=== PATIENT | male | born 1980 | race African-American/Black ===

== ENCOUNTER 2020-10-11 05:32 | Emergency (ER) | payer SELFPAY ==
[~2020-10-11] VITALS: Ht 182.9 cm; Wt 127.0 kg
--- NOTE | 2020-10-11 05:47 | PHYS DOC ---
General Adult EDM: Chief Complaint: GENERALIZED BODY ACHES HPI: HPI: 39-year-old male presents with 2-day history of fatigue, body aches, mild headache. He denies cough or shortness of breath. He has a friend who was sick for couple days. This was about 3 days ago. The patient is not vaccinated for COVID-19. He denies nausea, vomiting, chest pain. (MESERET NGUYỄN DO) HPI: Accepted patient care at shift change pending labs. EKG and chest x-ray unremarkable. (AMISH SKAGGS MD) Review of Systems: Review of Systems: Constitutional: Denies fever or chills. Fatigue, body aches. Eyes: Denies change in visual acuity HENT: Denies nasal congestion or sore throat Respiratory: Denies cough or shortness of breath Cardiovascular: Denies chest pain or edema GI: Denies abdominal pain, nausea, vomiting, bloody stools or diarrhea : Denies dysuria Musculoskeletal: Denies back pain or joint pain Integument: Denies rash Neurologic: Headache. Denies focal weakness or sensory changes Endocrine: Denies polyuria or polydipsia Lymphatic: Denies swollen glands Psychiatric: Denies depression or anxiety (MESERET NGUYỄN DO) Physical Exam: PE: Constitutional: Well developed, well nourished, obese, no acute distress, non- toxic appearance. [] HENT: Normocephalic, atraumatic, bilateral external ears normal, oropharynx moist, no oral exudates, nose normal. [] Eyes: PERRLA, EOMI, conjunctiva normal, no discharge. [] Neck: Normal range of motion, no tenderness, supple, no stridor. [] Cardiovascular: Heart rate 100, regular rhythm, no murmur [] Lungs & Thorax: Bilateral breath sounds clear to auscultation [] Abdomen: Bowel sounds normal, soft, no tenderness, no masses, no pulsatile masses. [] Skin: Warm, dry, no erythema, no rash. [] Back: No tenderness, no CVA tenderness. [] Extremities: No tenderness, no cyanosis, no clubbing, ROM intact, no edema. [] Neurologic: Alert and oriented X 3, normal motor function, normal sensory function, no focal deficits noted. [] Psychologic: Affect normal, judgement normal, mood normal. [] (MESERET NGUYỄN DO) EKG: EKG: [] (MESERET NGUYỄN DO) EKG: Sinus rhythm, heart rate 86/min, normal axis, no ST elevation or depression (AMISH SKAGGS MD) Radiology/Procedures: Radiology/Procedures: [] (MESERET NGUYỄN DO) Radiology/Procedures: [address] [address] IMAGING REPORT Signed PATIENT: MIRTHA OSHEA EACCOUNT: [id number] : 1980 LOCATION: ER AGE: 39 SEX: M EXAM STATUS: REG ER ORD. PHYSICIAN: MESERET NGUYỄN DO REASON: SoB PROCEDURE: CHEST AP ONLY EXAM: CHEST ONE VIEW. HISTORY: Shortness of breath. COMPARISON: None. FINDINGS: A frontal view of the chest is obtained. There are no confluent infiltrates. A linear opacity in the left base is consistent with atelectasis or scarring. There is no pneumothorax or pleural effusion. The heart is not enlarged. IMPRESSION: 1. No confluent infiltrates. Electronically signed by: Radha Uribe MD (10/11/2020 6:54 AM) [facility] DICTATED AND SIGNED BY: DELIA URIBE MD DATE: 10/11/20652 CC: MESERET NGUYỄN DO; PCP,NO ~MTH0 0 (AMISH SKAGGS MD) Heart Score: C/O Chest Pain: N/A Risk Factors: Risk Factors: DM, Current or recent (<one month) smoker, HTN, HLP, family history of CAD, obesity. Risk Scores: Score 0 - 3: 2.5% MACE over next 6 weeks - Discharge Home Score 4 - 6: 20.3% MACE over next 6 weeks - Admit for Clinical Observation Score 7 - 10: 72.7% MACE over next 6 weeks - Early Invasive Strategies (MESERET NGUYỄN DO) C/O Chest Pain: No HEART Score for Chest Pain: HEART Score for Chest Pain Response (Comments) Value History Slighlty/Non-Suspicious 0 ECG Normal 0 Age < 45 0 Risk Factors No Risk Factors 0 Troponin < Normal Limit 0 Total 0 (AMISH SKAGGS MD) Course & Med Decision Making: Course & Med Decision Making Pertinent Labs and Imaging studies reviewed. (See chart for details) The patient's workup is pending. I am signing him out to Dr. Skaggs at 0600. [] (MESERET NGUYỄN DO) Brook Disclaimer: Brook Disclaimer: This electronic medical record was generated, in whole or in part, using a voice recognition dictation system. (MESERET NGUYỄN DO) Departure Departure: Impression: Primary Impression: Person under investigation for COVID-19 Disposition: 01 HOME / SELF CARE / HOMELESS Condition: STABLE Referrals: PCP,NO (PCP) Additional Instructions: You have been tested for or diagnosed with COVID-19. It is an infection caused by a new type of coronavirus. COVID-19 will cause cold-like or mild flu symptoms in most. It can cause more severe symptoms like problems breathing in some. There is no treatment for COVID-19. The body will clear the infection over time. Self-care will help to ease discomfort. Steps to Take: Self-Care Rest as needed. Healthy habits may help you feel better. Steps include: Choose healthy foods including fruits and vegetables. Drink water throughout the day. Get plenty of sleep each night. If you smoke, try to quit. It may ease breathing. Avoid alcohol. Keep Others Healthy The virus can spread to others. Droplets are released every time you sneeze or cough. The droplets can get into the mouth, nose, or eyes of people near you and lead to infection. To lower the chances of spreading COVID-19 to others: Stay at home until your doctor has said it is safe to leave. If you tested positive this will mean staying isolated until both of the following are true: At least 7 days have passed since the start of illness. You are free of fever for at least 72 hours without the use of medicine. During this time: - Avoid public areas, events, or transportation. Do not return to work or school until your doctor has said it is safe to do so. - Call ahead if you need to go to a medical center. Let them know you may have COVID-19. It will help them guide you where to go. They may also ask you to wear a facemask when you come to the office. - If you call for emergency medical services, let them know you may have COVID- 19. While at home: - Try to avoid close contact with others. Stay about 6 feet away. - If possible, spend most of your time in a separate room from others. - Use a face mask if you will be in close contact with others such as sharing a room or vehicle. - Have someone wipe down common surfaces in the home. Use household sr risk management consultant every day on areas like doorknobs, counters, or sinks. - Cough or sneeze into a tissue. Throw the tissue away right after use. If a tissue is not available, cough or sneeze into your elbow. - Wash your hands often. Wash them after sneezing or coughing. Use soap and water and wash for at least 20 seconds. Alcohol based hand bin cleaner can be used if soap and water is not available. - Do not prepare food for others. Avoid sharing personal items like forks, spoons, or toothbrushes. - Avoid close contact with pets while you are sick. There is no evidence of the virus passing to pets. This is a safety step until more is known about this virus. Isolation can be frustrating. Social interaction can help. Keep in touch with friends and family through phone and tech options. You can still interact with others in your home, just keep a safe distance of about 6 feet. Follow-up: Your doctors office will check in with you to see if there are any changes in your health. You may be asked to keep track of symptoms to share with them. They will also l et you know when you are clear to be in public again. Problems to Look Out For: Contact your doctor if your recovery is not going as you expect. Get emergency care if you have problems such as: - Trouble breathing - Nonstop chest pain or pressure - Changes in awareness, confusion, or problems waking - Lips or face have bluish color - Worsening of symptoms If you think you have an emergency, call for emergency medical services right away. As taken from [facility] MESERET NGUYỄN DO Oct 11, 2020 05:47 AMISH SKAGGS MD Oct 11, 2020 07:34
--- NOTE | 2020-10-11 06:31 | EKG ---
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
--- NOTE | 2020-10-11 06:56 | RAD ---
EXAM: CHEST ONE VIEW. HISTORY: Shortness of breath. COMPARISON: None. FINDINGS: A frontal view of the chest is obtained. There are no confluent infiltrates. A linear opacity in the left base is consistent with atelectasis or scarring. There is no pneumothorax or pleural effusion. The heart is not enlarged. IMPRESSION: 1. No confluent infiltrates. Electronically signed by: Radha Uribe MD (10/11/2020 6:54 AM) [facility]
[2020-10-11 07:04] LABS: BASO % 1 % (0-3); EOS % 1 % (0-3); HEMATOCRIT 41.8 % (39.0-53.0); HEMOGLOBIN 14.2 g/dL (13.0-17.5); LYMPH % 30 % (24-48); MEAN CORPUSCULAR HEMOGLOBIN 32 pg (25-35); MEAN CORPUSCULAR HGB CONC 34 g/dL (31-37); MEAN CORPUSCULAR VOLUME 94 fL (79-100); MONO # 0.5 x10^3/uL (0.0-1.1); MONO % 14 % (0-9); NEUT # 1.8 x10^3uL (1.8-7.7); NEUT % 55 % (31-73); PLATELET COUNT 66 x10^3/uL (140-400); RED BLOOD COUNT 4.46 x10^6/uL (4.30-5.70); RED CELL DISTRIBUTION WIDTH 13.9 % (11.5-14.5); WHITE BLOOD COUNT 3.3 x10^3/uL (4.0-11.0)
[2020-10-11 07:10] LABS: CALCIUM 8.2 mg/dL (8.5-10.1); CREATININE 1.3 mg/dL (0.7-1.3); GFR 74.4
[2020-10-11 07:16] LABS: ALBUMIN 3.8 g/dL (3.4-5.0); ALBUMIN/GLOBULIN RATIO 1.3 (1.0-1.7); TOTAL BILIRUBIN 0.5 mg/dL (0.2-1.0); TOTAL PROTEIN 6.7 g/dL (6.4-8.2)
[2020-10-11 08:00] VITALS: BP 156/78
--- NOTE | 2020-10-13 12:25 | NUR ---
Call to notify patient of POSITIVE COVID test results. Voicemail does not identify by name, message left requesting return call to [phone] for ED test results, non-specific.
== END 2020-10-11 08:00 | disposition home or self-care (01) ==
LOC: ER 05:32
DX: U07.1 COVID-19 (principal)
CPT/HCPCS: 71045; 80053; 84484; 85025; 93005; 99285; C9803; U0003

== ENCOUNTER 2020-10-15 22:03 | Emergency (ER) | payer SELFPAY ==
--- NOTE | 2020-10-15 22:16 | PHYS DOC ---
Past History Additional Past Medical Histor: hernia Past Surgical History: Other Additional Past Surgical Histo: hernia repair Alcohol Use: None General Adult HPI: HPI: Pt. not seen by physician. Patient, was in waiting room. Wanted re-checked for COVID, because of loss of taste . Pt. was here 10/11 had a + test result. Pt. informed of + Test results- Pt. now declined ED eval. Informed by nursing to self isolated and notify contacts. Pt. never received his Covid vaccinations. Patient encouraged follow-up with primary care. Patient is a 40 year old male who presents with above hx and complaints of loss taste. Review of Systems: Review of Systems: Constitutional: Denies fever or chills Eyes: Denies change in visual acuity HENT: Denies nasal congestion or sore throat Respiratory: Denies cough or shortness of breath Cardiovascular: Denies chest pain or edema GI: Denies abdominal pain, nausea, vomiting, bloody stools or diarrhea : Denies dysuria Musculoskeletal: Denies back pain or joint pain Integument: Denies rash Neurologic: Denies headache, focal weakness or sensory changes. Complains of loss of taste Endocrine: Denies polyuria or polydipsia Lymphatic: Denies swollen glands Psychiatric: Denies depression or anxiety Family History: Family History: See nursing for home meds Allergies: Allergies: Allergies Coded Allergies Type Severity Reaction Last Updated Verified No Known Drug Allergies 10/11/20 No Physical Exam: PE: no exam EKG: EKG: [] Radiology/Procedures: Radiology/Procedures: [] Heart Score: C/O Chest Pain: N/A Risk Factors: Risk Factors: DM, Current or recent (<one month) smoker, HTN, HLP, family history of CAD, obesity. Risk Scores: Score 0 - 3: 2.5% MACE over next 6 weeks - Discharge Home Score 4 - 6: 20.3% MACE over next 6 weeks - Admit for Clinical Observation Score 7 - 10: 72.7% MACE over next 6 weeks - Early Invasive Strategies Course & Med Decision Making: Course & Med Decision Making Pertinent Labs and Imaging studies reviewed. (See chart for details) Patient informed of his earlier positive test results of Covid positive on 10/11/20,. Patient informed of self isolate. To informed contacts. Patient did not have physician evaluation. Patient follow-up primary care patient return if any concerns. Currently poorly no dyspnea Impression: 1. COVID + 10/11/20 [] Brook Disclaimer: Brook Disclaimer: This electronic medical record was generated, in whole or in part, using a voice recognition dictation system. Departure Departure: Referrals: PCP,GUSTAVO (PCP) JOSE LUIS RANKIN MD Oct 15, 2020 22:16
== END 2020-10-15 22:23 | disposition left against medical advice (07) ==
LOC: ER 22:03
DX: U07.1 COVID-19 (principal)
CPT/HCPCS: 99281

== ENCOUNTER 2020-11-07 00:36 | Emergency (ER) | payer SELFPAY ==
[~2020-11-07] VITALS: Ht 182.9 cm; Wt 138.0 kg
--- NOTE | 2020-11-07 01:11 | PHYS DOC ---
Past History Additional Past Medical Histor: hernia Past Surgical History: Other Additional Past Surgical Histo: hernia repair Alcohol Use: None Adult General Chief Complaint Chief Complaint: ABDOMINAL PAIN HPI HPI Patient is a 40-year-old male who presents with right lower quadrant abdominal pain that started earlier in the day, 8 out of 10, sharp in nature with mild nausea but no vomiting. States he had anything like this before. Denies any recent traumas, travels, fevers, chest pain, shortness of breath. Review of Systems Review of Systems Review of systems otherwise unremarkable except noted in HPI Current Medications Current Medications Current Medications Medications (Trade) Dose Ordered Sig/Rohan Start Time Stop Time Status Last Admin Dose Admin Fentanyl Citrate (Fentanyl 2ml Vial) 75 mcg 1X ONCE 11/07/20 01:15 11/07/20 01:16 UNV Iohexol (Omnipaque 300 Mg/ml) 75 ml 1X ONCE 11/07/20 01:15 11/07/20 01:16 UNV Ondansetron HCl (Zofran) 4 mg 1X ONCE 11/07/20 01:15 11/07/20 01:16 UNV Allergies Allergies Allergies Coded Allergies Type Severity Reaction Last Updated Verified No Known Drug Allergies 10/11/20 No Physical Exam Physical Exam Constitutional: Well developed, well nourished, no acute distress, non-toxic appearance. [] HENT: Normocephalic, atraumatic, bilateral external ears normal, oropharynx moist, no oral exudates, nose normal. [] Eyes: conjunctiva normal, no discharge. [] Neck: Normal range of motion, no tenderness, supple, no stridor. [] Cardiovascular:Heart rate regular rhythm, no murmur [] Lungs & Thorax: Bilateral breath sounds clear to auscultation [] Abdomen: Right lower quadrant tenderness to palpation with no guarding or rebound, soft, no tenderness, no masses, no pulsatile masses. [] Skin: Warm, dry, no erythema, no rash. [] Back: no CVA tenderness. [] Extremities: No tenderness, ROM intact, no edema. [] Neurologic: Alert and oriented X 3, no focal deficits noted. [] Psychologic: Affect normal, judgement normal, mood normal. [] EKG EKG [] Radiology/Procedures Radiology/Procedures []indings: Lower chest: There is a 2 mm nodule in the posterior left lower lobe. The heart is normal in size Liver: Liver is decreased in attenuation. Gallbladder/Biliary Tree: Normal. Pancreas: Normal. Spleen: Normal. Adrenal Glands: Normal. Kidneys/Ureters/Bladder: Kidneys are normal in size and enhancement. No hydronephrosis. Ureters and bladder are normal. Reproductive Organs: Prostate gland is normal. Stomach, small bowel, and colon: Stomach, small bowel, and colon are normal. The appendix is mildly dilated measuring 8 mm with wall thickening and periappendiceal inflammation. No evidence of perforation or abscess. Vasculature: Abdominal aorta is normal in caliber. Lymph Nodes: No lymphadenopathy. Peritoneum and retroperitoneum: No free fluid or free air. Bones: No acute osseous abnormality. 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 Impression: 1. Uncomplicated acute appendicitis. 2. Hepatic steatosis. Heart Score C/O Chest Pain: No Risk Factors: Risk Factors: DM, Current or recent (<one month) smoker, HTN, HLP, family history of CAD, obesity. Risk Scores: Risk Factors: DM, Current or recent (<one month) smoker, HTN, HLP, family history of CAD, obesity. Course & Med Decision Making Course & Med Decision Making Patient is a 40-year-old male who presents with right lower quadrant abdominal pain Vital signs notable for hypertension. Physical exam noted above. Patient placed on monitor with IV access established and Zofran for nausea given as well as fentanyl for pain. Laboratory analysis not concerning. Urinalysis not concerning. CT notable for acute appendicitis and hepatic steatosis. Patient made n.p.o. Continued on pain and nausea medicine. Continued on IV fluid resuscitation. Started on Zosyn. Discussed patient with Dr. Fenton for admission to [facility] for surgical evaluation of appendicitis. Discussed findings with patient who agreed with plan of transfer and admission. [] Dragon Disclaimer Dragon Disclaimer This electronic medical record was generated, in whole or in part, using a voice recognition dictation system. Departure Departure: Impression: Primary Impression: Appendicitis Additional Impressions: Abdominal pain Nausea Disposition: 02 SHORT TERM HOSPITAL Admitting Physician: Fabrice Fenton Condition: STABLE Referrals: PCP,NO (PCP) Problem Qualifiers OSVALDO LINDSAY MD Nov 07, 2020 01:11
[2020-11-07] MEDS ORDERED: CONTRAST GIVEN. MC PRN (01:15)
[2020-11-07] MEDS ORDERED: IOHEXOL 300 MG/ML 75 ML VIAL. IV ONE (01:30)
[2020-11-07] MEDS ORDERED: ONDANSETRON PF 4 MG/2 ML VIAL. IVP ONE (01:30)
[2020-11-07 01:42] LABS: CALCIUM 8.3 mg/dL (8.5-10.1); CREATININE 1.5 mg/dL (0.7-1.3); GFR 62.7; POTASSIUM 4.4 mmol/L (3.5-5.1)
[2020-11-07 01:44] LABS: BASO # 0.1 x10^3/uL (0.0-0.2); BASO % 1 % (0-3); EOS # 0.1 x10^3/uL (0.0-0.7); EOS % 1 % (0-3); HEMATOCRIT 43.4 % (39.0-53.0); HEMOGLOBIN 14.7 g/dL (13.0-17.5); LYMPH # 2.2 x10^3/uL (1.0-4.8); LYMPH % 26 % (24-48); MEAN CORPUSCULAR HEMOGLOBIN 32 pg (25-35); MEAN CORPUSCULAR HGB CONC 34 g/dL (31-37); MEAN CORPUSCULAR VOLUME 93 fL (79-100); MONO # 0.4 x10^3/uL (0.0-1.1); MONO % 5 % (0-9); NEUT # 5.6 x10^3uL (1.8-7.7); NEUT % 67 % (31-73); PLATELET COUNT 70 x10^3/uL (140-400); RED BLOOD COUNT 4.66 x10^6/uL (4.30-5.70); RED CELL DISTRIBUTION WIDTH 13.5 % (11.5-14.5); WHITE BLOOD COUNT 8.4 x10^3/uL (4.0-11.0)
[2020-11-07 01:45] LABS: BACTERIA,URINE 0 /HPF (0-FEW); BILIRUBIN,URINE NEG (NEG); CLARITY,URINE CLEAR; COLOR,URINE YELLOW; GLUCOSE,URINE NEG (NEG); NITRITE,URINE NEG (NEG); RBC,URINE 0 /HPF (0-2); SQUAMOUS EPITHELIAL CELL,UR OCC /LPF; UROBILINOGEN,URINE 0.2 mg/dL (0.2 mg/dL); WBC,URINE RARE /HPF (0-4)
[2020-11-07 01:47] LABS: ALBUMIN 3.8 g/dL (3.4-5.0); ALBUMIN/GLOBULIN RATIO 1.4 (1.0-1.7); TOTAL BILIRUBIN 0.3 mg/dL (0.2-1.0); TOTAL PROTEIN 6.6 g/dL (6.4-8.2)
[2020-11-07] MEDS ORDERED: IV RINGERS SOLUTION,LACTATED 1,000 ML IV ONE (02:30)
[2020-11-07 02:34] LABS: PLT ESTIMATE DECREASED (ADEQUATE)
--- NOTE | 2020-11-07 02:50 | RAD ---
Exam: CT abdomen/pelvis with intravenous contrast Indication: Right lower quadrant pain Comparison: None Technique: Helical CT imaging performed of the abdomen and pelvis after the intravenous administratio n of 75 mL Omnipaque 300 contrast. Sagittal and coronal reformats were obtained. One or more of the following individualized dose reduction techniques were utilized for this examinat ion: 1. Automated exposure control 2. Adjustment of the mA and/or kV according to patient size 3. Use of iterative reconstruction technique. Findings: Lower chest: There is a 2 mm nodule in the posterior left lower lobe. The heart is normal in size Liver: Liver is decreased in attenuation. Gallbladder/Biliary Tree: Normal. Pancreas: Normal. Spleen: Normal. Adrenal Glands: Normal. Kidneys/Ureters/Bladder: Kidneys are normal in size and enhancement. No hydronephrosis. Ureters and b ladder are normal. Reproductive Organs: Prostate gland is normal. Stomach, small bowel, and colon: Stomach, small bowel, and colon are normal. The appendix is mildly d ilated measuring 8 mm with wall thickening and periappendiceal inflammation. No evidence of perforati on or abscess. Vasculature: Abdominal aorta is normal in caliber. Lymph Nodes: No lymphadenopathy. Peritoneum and retroperitoneum: No free fluid or free air. Bones: No acute osseous abnormality. 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 Impression: 1. Uncomplicated acute appendicitis. 2. Hepatic steatosis. FOR INTERNAL CODING PURPOSES Critical result: Findings discussed with Alla in the ER at 11/07/2020 2:46 AM. RESULT CODE: (C) 1. Electronically signed by: Maria Luz Jones MD (11/07/2020 2:47 AM) [id number]
[2020-11-07] MEDS ORDERED: MORPHINE SULFATE 4 MG/ML DISP.SYRIN. IV ONE (03:30)
[2020-11-07] MEDS ORDERED: PIPERACILLIN/TAZOBACTAM 3.375 GM in IV NORMAL SALINE 50ML 50 ML IV ONE (03:30)
[2020-11-07] MEDS ORDERED: PIPERACILLIN/TAZOBACTAM 3.375 GM VIAL IV ONE (03:41)
[2020-11-07] MEDS ORDERED: IV NORMAL SALINE 50ML 50 ML ONE (03:41)
[2020-11-07 03:45] VITALS: BP 156/85
== END 2020-11-07 03:58 | disposition short-term general hospital (02) ==
LOC: ER 00:36
DX: K37 Unspecified appendicitis (principal); Z20.822 Contact with and (suspected) exposure to COVID-19
CPT/HCPCS: 36415; 74177; 80053; 81001; 83690; 85025; 87426; 96361; 96374; 96375; 99285; J2270; J2405; J2543; J3010; J7120; Q9967

== ENCOUNTER 2021-03-21 12:01 | Emergency (ER) | payer SELFPAY ==
[~2021-03-21] VITALS: Ht 182.9 cm; Wt 134.0 kg
--- NOTE | 2021-03-21 15:30 | PHYS DOC ---
Past History Additional Past Medical Histor: sleep apnea; covid + on Oct 11 (EUGENIO KHANNA APRN) Past Surgical History: Appendectomy, Other Additional Past Surgical Histo: hernia repair lt ing at age 8; wisdom tooth removed - (EUGENIO KHANNA APRN) Alcohol Use: Occasionally (EUGENIO KHANNA APRN) General Adult EDM: Chief Complaint: SORE THROAT HPI: HPI: Patient is a 40-year-old male who presents to the emergency department for sore throat, pain with swallowing, yellow/brown productive cough that started this morning. Patient denies any fevers, shortness of breath, nausea, vomiting, sick exposures. Patient is currently sleeping in ER cot. (EUGENIO KHANNA APRN) Review of Systems: Review of Systems: Constitutional: See HPI HENT: See HPI Respiratory: See HPI Cardiovascular: See HPI GI: See HPI (EUGENIO KHANNA APRN) Allergies: Allergies: Allergies Coded Allergies Type Severity Reaction Last Updated Verified No Known Drug Allergies 10/11/20 No (EUGENIO KHANNA APRN) Physical Exam: PE: Constitutional: Well developed, well nourished, no acute distress, non-toxic appearance. [] HENT: Normocephalic, atraumatic, bilateral external ears normal, oropharynx moist, no oral exudates, 2+ tonsillar enlargement, erythematous oropharynx, uvula midline, no trismus, no phonation changes nose normal. [] Eyes: PERRL, EOMI, conjunctiva normal, no discharge. [] Neck: Normal range of motion, no tenderness, no palpable lymphadenopathy supple, no stridor. [] Cardiovascular:Heart rate regular rhythm, no murmur [] Lungs & Thorax: Bilateral breath sounds clear to auscultation [] Abdomen: Soft and flat Skin: Warm, dry, no erythema, no rash. [] Back: Normal range of motion Extremities: No tenderness, no cyanosis, no clubbing, ROM intact, no edema. [] Neurologic: Alert and oriented X 3, normal motor function, normal sensory fu nction, no focal deficits noted. [] Psychologic: Affect normal, judgement normal, mood normal. [] (EUGENIO KHANNA APRN) Current Patient Data: Vital Signs: Vital Signs Date Time Temp Pulse Resp B/P (MAP) Pulse Ox O2 Delivery O2 Flow Rate FiO2 1/10/22 12:28 98.7 92 20 144/96 (112) 97 Room Air (EUGENIO KHANNA APRN) EKG: EKG: [] (EUGENIO KHANNA APRN) Radiology/Procedures: Radiology/Procedures: [] (EUGENIO KHANNA APRN) Heart Score: C/O Chest Pain: N/A Risk Factors: Risk Factors: DM, Current or recent (<one month) smoker, HTN, HLP, family history of CAD, obesity. Risk Scores: Score 0 - 3: 2.5% MACE over next 6 weeks - Discharge Home Score 4 - 6: 20.3% MACE over next 6 weeks - Admit for Clinical Observation Score 7 - 10: 72.7% MACE over next 6 weeks - Early Invasive Strategies (EUGENIO KHANNA APRN) Course & Med Decision Making: Course & Med Decision Making Pertinent Labs and Imaging studies reviewed. (See chart for details) [] Patient presents to the emergency department for sore throat, cough. Patient being tested for COVID-19, influenza and strep throat. Rapid strep was neg ative. Rapid influenza negative, rapid COVID negative. patient educated on symptomatic treatment. I discussed with patient all findings and diagnostic testing as well as the need to follow-up with PCP for further evaluation and treatment or return to the ER if any new or worsening symptoms. Strict return precautions were also discussed at length. Patient voiced understanding and agreement with the plan. Patient is hemodynamically stable at the time of disposition. (EUGENIO KHANNA APRN) Dragon Disclaimer: Dragon Disclaimer: This electronic medical record was generated, in whole or in part, using a voice recognition dictation system. (EUGENIO KHANNA APRN) Attending Co-Sign The patient was seen and interviewed as well as examined at the bedside. The chart was reviewed. The case was discussed. Agree with the plan of care. (MESERET NGUYỄN DO) Departure Departure: Impression: Primary Impression: Pharyngitis Qualified Codes: J02.9 - Acute pharyngitis, unspecified Disposition: HOME / SELF CARE / HOMELESS Condition: GOOD Referrals: PCP,NO (PCP) Patient Instructions: Viral Pharyngitis Additional Instructions: You are seen in the emergency department for sore throat and cough. Your rapid strep, influenza and COVID test was negative. Please perform warm salt water gargles for your sore throat. He can take Tylenol and/or ibuprofen. Follow-up with your primary care provider tomorrow regarding your ER visit. Please return to the emergency department if you develop worsening of your sore throat, inability to swallow, shortness of breath, chest pain, high fevers refractory to treatment, intractable nausea or vomiting, voice changes, inability to maintain her secretions. EUGENIO KHANNA APRN Mar 21, 2021 15:30 MESERET NGUYỄN DO Mar 22, 2021 08:29
[2021-03-21 15:45] VITALS: BP 149/84
[2021-03-21 16:19] LABS: INFLUENZA A PATIENT NEGATIVE (NEGATIVE); INFLUENZA B PATIENT NEGATIVE (NEGATIVE)
== END 2021-03-21 16:59 | disposition home or self-care (01) ==
LOC: ER 12:01
DX: J02.9 Acute pharyngitis, unspecified (principal); R05.9 Cough, unspecified; R13.10 Dysphagia, unspecified; Z20.822 Contact with and (suspected) exposure to COVID-19
CPT/HCPCS: 87070; 87147; 87428; 87880; 99283

== ENCOUNTER 2021-04-06 05:25 | Emergency (ER) | payer SELFPAY ==
[~2021-04-06] VITALS: Ht 182.9 cm; Wt 127.0 kg
[2021-04-06 05:40] VITALS: BP 142/90
[2021-04-06] MEDS ORDERED: DEXAMETHASONE SOD PHOS 4 MG/ML VIAL. PO ONE (06:15)
--- NOTE | 2021-04-06 06:18 | PHYS DOC ---
Past History Additional Past Medical Histor: sleep apnea; covid + on Oct 11 Past Surgical History: Appendectomy, Other Additional Past Surgical Histo: hernia repair lt ing at age 8; wisdom tooth removed 10-30 Alcohol Use: Occasionally Adult General Chief Complaint Chief Complaint: COUGH HPI HPI Patient is a 40-year-old male presenting for sore throat. He was seen and evaluated at our facility 16 days ago and had rapid strep that was negative with subsequent culture showing group B strep. He was prescribed penicillin and took this to completion. Nonetheless, he states that he initially got better but shortly afterwards had recurrent sore throat with other symptoms such as extreme fatigue, nasal drainage, postnasal drip, and a dry nonproductive cough. He has not taken anything in attempt to alleviate his symptoms. Admits he is otherwise healthy with no diagnosed medical conditions. He is unvaccinated against COVID- 19 with recent infection October 2020 Review of Systems Review of Systems Fourteen body systems of review of systems have been reviewed. See HPI for pertinent positives and negative responses, other blackburn all other systems are negative, non-pertinent or non-contributory Allergies Allergies Allergies Coded Allergies Type Severity Reaction Last Updated Verified No Known Drug Allergies 10/11/20 No Physical Exam Physical Exam General: Appears well, non toxic, and comfortable Skin: Warm, dry. Normal for ethnicity. HEENT: Atraumatic. PERRLA. Rhinorrhea and congestion. Nasal turbinates boggy b/l. Moist mucous membranes. Uvula midline. Maintaining secretions. No phonation changes. Injected conjunctiva bilaterally Neck: Trachea midline. Normal ROM. No stridor. Respiratory: Normal WOB. CTAB w/o w/r/r. No tachypnea. Cardiovascular: Regular rate and rhythm. Normal peripheral perfusion. Abdomen: Soft. Non tender. No distension. Back: Normal ROM. Musculoskeletal: No swelling or deformity. Neuro: Alert and oriented x 4. MAEE. Lymph: No cervical LAD. Psych: Normal affect and mood. Current Patient Data Vital Signs Vital Signs Date Time Temp Pulse Resp B/P (MAP) Pulse Ox O2 Delivery O2 Flow Rate FiO2 04/06/21 05:40 98.8 90 18 142/90 (107) 96 Room Air Lab Results Laboratory Tests Test 04/06/21 06:20 Influenza Type A (Rapid) Negative Influenza Type B (Rapid) Negative SARS-CoV-2 Antigen (Rapid) Negative Current Medications Medications (Trade) Dose Ordered Sig/Rohan Route PRN Reason Start Time Stop Time Status Last Admin Dose Admin Dexamethasone Sodium Phosphate (Decadron) 2 mg 1X ONCE PO 04/06/21 06:15 04/06/21 06:17 DC 04/06/21 06:20 EKG EKG [] Radiology/Procedures Radiology/Procedures [] Heart Score C/O Chest Pain: No Risk Factors: Risk Factors: DM, Current or recent (<one month) smoker, HTN, HLP, family history of CAD, obesity. Risk Scores: Risk Factors: DM, Current or recent (<one month) smoker, HTN, HLP, family history of CAD, obesity. Course & Med Decision Making Course & Med Decision Making ABCs unremarkable HPI and physical exam nonconcerning for any emergent or surgical issues Discussed sore throat could be residual from adequate strep throat treatment. Concerning symptoms for Covid in an unvaccinated individual. Influenza and COVID rapid tests performed and negative Patient adamant about receiving something for symptom control, subtherapeutic dose of dexamethasone administered. Advised him to take Flonase and an antihistamine with appropriate supportive and self quarantine instructions on d ischarge time Dragon Disclaimer Dragon Disclaimer This electronic medical record was generated, in whole or in part, using a voice recognition dictation system. Departure Departure: Impression: Primary Impression: Viral syndrome Additional Impression: Person under investigation for COVID-19 Disposition: 01 HOME / SELF CARE / HOMELESS Condition: STABLE Referrals: PCP,NO (PCP) Additional Instructions: You were seen for fatigue, sore throat, nasal drainage, and possible infection with COVID-19. Your physical exam was reassuring. We tested you for COVID-19 but this test does not come back for 1 to 2 hours. In the meantime you need to quarantine yourself at home away from all other individuals, especially those who are elderly or have any other chronic health issues or an immunocompromised status. Alternate Tylenol and ibuprofen as needed for body aches and pain. If your test does come back positive you need to quarantine yourself for 10 days until symptom-free. You should make sure to drink plenty of fluids and get plenty of rest. You should return to the ED if you develop worsening cough, shortness of breath, chest pain, or any other new or concerning symptoms. Problem Qualifiers DWAIN REHMAN DO Apr 06, 2021 06:18
[2021-04-06 06:52] LABS: INFLUENZA A PATIENT NEGATIVE (NEGATIVE); INFLUENZA B PATIENT NEGATIVE (NEGATIVE)
== END 2021-04-06 06:30 | disposition home or self-care (01) ==
LOC: ER 05:25
DX: B34.9 Viral infection, unspecified (principal); Z20.822 Contact with and (suspected) exposure to COVID-19
CPT/HCPCS: 87428; 99283; J1100